=== PATIENT | male | born 1995 | race Caucasian/White ===

== ENCOUNTER 2020-09-08 23:20 | Emergency (ER) | payer BC, SELFPAY ==
[2020-09-08 23:22] VITALS: BP 131/89; PULSE 91; RESP 16; TEMP 5445.5; TEMP 9834; O2SAT 99; BMI 39.1
--- NOTE | 2020-09-08 23:50 | ECG_ITS ---
Test Reason : PALPITATION Blood Pressure : / mmHG Vent. Rate : 088 BPM Atrial Rate : 088 BPM P-R Int : 148 ms QRS Dur : 094 ms QT Int : 358 ms P-R-T Axes : 039 -07 012 degrees QTc Int : 433 ms Normal sinus rhythm with sinus arrhythmia Minimal voltage criteria for LVH, may be normal variant Borderline ECG No previous ECGs available Referred By: Meggan Santos Electronically Signed By:Eric Hernandez
--- NOTE | 2020-09-09 | ED_ITS ---
HPI - Arrhythmia/Palpitations General Chief Complaint: Arrhythmia/Palpitations Stated Complaint: Palputations Time Seen by Provider: 09/08/20 23:49 Source: patient Mode of arrival: ambulatory History of Present Illness HPI narrative: 24-year-old male without significant past medical history presents with concerns regarding palpitations that started , infrequently similar to prior, but states that today he felt like the palpitatio ns were more frequent and he became concerned as he fell he was also short of breath and decided to be evaluated in the emergency room. He endorses that he got 1st COVID-19 vaccine on Thursday. No recent history of long car rides or plane trips, hemoptysis, personal history of cancer, recent surgery or bed bound state, calf pain or calf swelling. Related Data Allergies Allergy/AdvReac Type Severity Reaction Status Date / Time amoxicillin Allergy Rash Verified 09/08/20 23:29 Penicillins [PCN] Allergy Rash Verified 09/08/20 23:29 Review of Systems Review of Systems: For pertinent positive and negative as per HPI and 10 point review of systems is otherwise negative. PMFSH Past Medical History Source: nursing notes reviewed Medical History No known health problems Social History Social History Smoked in Last 30 Days: No Advance Directives: No Advance Directives Information Provided: No Physical Exam Vital Signs: Vital Signs: Last Vital Signs Temp 9834 F H 09/08/20 23:22 Pulse 91 09/08/20 23:22 Resp 16 09/08/20 23:22 BP 131/89 09/08/20 23:22 Pulse Ox 99 09/08/20 23:22 Body Mass Index 39.1 VITAL SIGNS: Reviewed. GENERAL: Well developed, well nourished, in no acute distress. HEAD: Normocephalic/atraumatic EYES: PERRLA, EOMI EARS: Ext canals without abnormality NOSE: Nares patent bilateral OROPHARYNX: no oral lesions noted, posterior pharynx clear NECK: Supple, no adenopathy LUNGS: Normal breath sounds. No adventitious sounds or accessory muscle use. SpO2<99> CARDIOVASCULAR: Regular rate and rhythm without noted murmurs ABDOMEN: Soft, non-tender, non-distended with bowel sounds. SKIN: Inspection of the skin reveals no rashes, diaphoresis NEUROLOGIC: Alert and oriented x 4. Course Course Course Narrative: 24-year-old male with history and clinical presentation suggestive of palpitations likely secondary to anxiety/caffeine ingestion but will rule out alternate etiologies. Review of all investigations negative for any acute findings. All results and findings were discussed with the patient at bedside, and he was discharged in stable condition with recommendations to follow-up with his primary care provider. MDM - Arrhythmia/Palpitations Lab Data Result diagrams: 09/09/20 00:15 09/09/20 00:15 Labs: Lab Results 09/09/20 09/09/20 09/09/20 Range/Units 00:15 00:15 00:16 WBC 7.0 (4.8-10.8) X10*3/uL RBC 4.99 (4.60-5.80) X10*6/uL Hgb 15.2 (14.0-18.0) g/dl Hct 43.8 (42-52) % MCV 87.8 (80-98) fL MCH 30.5 (27.0-33.0) pg MCHC 34.7 (31.0-36.0) g/dl RDW 12.5 (11.0-16.0) % Plt Count 204 (160-400) X10*3/uL MPV 11.4 (9.4-12.4) fL Immature Gran % (Auto) 0.3 (0.0-0.4) % Neut % (Auto) 49.2 (45-73) % Lymph % (Auto) 36.8 (20-40) % [place] % (Auto) 11.0 (2-11) % Eos % (Auto) 2.3 (0-4) % Baso % (Auto) 0.4 (0-2) % Lymph # (Auto) 2.6 (1.2-4.9) X10*3/uL [place] # (Auto) 0.8 (0.1-1.2) X10*3/uL Eos # (Auto) 0.2 (0.0-0.4) X10*3/uL Baso # (Auto) 0.0 (0.0-0.2) X10*3/uL Abs Immat Gran (auto) 0.02 (0.00-0.03) X10*3/uL Absolute Neuts (auto) 3.5 (2.0-8.3) X10*3/uL Absolute Nucleated RBC 0.000 (0.0-0.012) X10*3/uL Nucleated RBC % (auto) 0.0 (0.0-0.2) /100WBC D-Dimer < 200 NG/ML Sodium 141 (135-145) mmol/L Potassium 3.6 (3.3-5.1) mmol/L Chloride 103 (96-108) mmol/L Carbon Dioxide 29 (22-29) mmol/L Anion Gap 13 (12-20) BUN 24 H (9-16) mg/dL Creatinine 0.99 (0.5-1.4) mg/dL Estim Creat Clear Calc 146.0 Estimated GFR > 60 Random Glucose 95 (60-115) mg/dL Calcium 9.8 (8.4-10.2) mg/dL Total Bilirubin 0.6 (0.0-1.0) mg/dL AST 43 H (5-37) U/L ALT 76 H (0-40) U/L Alkaline Phosphatase 67 (39-117) U/L Total Protein 7.0 (6.5-8.0) g/dL Albumin 4.7 (3.5-5.0) g/dL TSH (0.32-4.0) uIU/mL 09/09/20 Range/Units 00:16 WBC (4.8-10.8) X10*3/uL RBC (4.60-5.80) X10*6/uL Hgb (14.0-18.0) g/dl Hct (42-52) % MCV (80-98) fL MCH (27.0-33.0) pg MCHC (31.0-36.0) g/dl RDW (11.0-16.0) % Plt Count (160-400) X10*3/uL MPV (9.4-12.4) fL Immature Gran % (Auto) (0.0-0.4) % Neut % (Auto) (45-73) % Lymph % (Auto) (20-40) % [place] % (Auto) (2-11) % Eos % (Auto) (0-4) % Baso % (Auto) (0-2) % Lymph # (Auto) (1.2-4.9) X10*3/uL [place] # (Auto) (0.1-1.2) X10*3/uL Eos # (Auto) (0.0-0.4) X10*3/uL Baso # (Auto) (0.0-0.2) X10*3/uL Abs Immat Gran (auto) (0.00-0.03) X10*3/uL Absolute Neuts (auto) (2.0-8.3) X10*3/uL Absolute Nucleated RBC (0.0-0.012) X10*3/uL Nucleated RBC % (auto) (0.0-0.2) /100WBC D-Dimer NG/ML Sodium (135-145) mmol/L Potassium (3.3-5.1) mmol/L Chloride (96-108) mmol/L Carbon Dioxide (22-29) mmol/L Anion Gap (12-20) BUN (9-16) mg/dL Creatinine (0.5-1.4) mg/dL Estim Creat Clear Calc Estimated GFR Random Glucose (60-115) mg/dL Calcium (8.4-10.2) mg/dL Total Bilirubin (0.0-1.0) mg/dL AST (5-37) U/L ALT (0-40) U/L Alkaline Phosphatase (39-117) U/L Total Protein (6.5-8.0) g/dL Albumin (3.5-5.0) g/dL TSH 2.58 (0.32-4.0) uIU/mL ECG Data Attestation: I personally reviewed and interpreted this ECG as follows: Prior ECG tracings: not available for review Interpretation: Normal sinus rhythm, HR -88, no evidence of acute ischemia, OH/QRS/QTC are within normal limits. Discharge Plan Discharge Clinical Impression: Palpitations Patient Disposition: Home, Self-Care Instructions: Heart Palpitations (ED) Additional Instructions: Follow-up with your primary care provider in the next 2-3 days for re-evaluation and out patient management of your palpitations. Return to the emergency department for any acute worsening of symptoms. Referrals: Sierra Cruz MD [Primary Care Provider] - 2 days (Re-evaluation after seen in the ER for palpitations.)
[2020-09-09 00:21] LABS: Basophils Percent Auto 0.4 % (0-2); Eosinophils Absolute Auto 0.2 X10*3/uL (0.0-0.4); Eosinophils Percent Auto 2.3 % (0-4); Hematocrit 43.8 % (42-52); Hemoglobin 15.2 g/dl (14.0-18.0); Imm Gran Abs Auto 0.02 X10*3/uL (0.00-0.03); Imm Gran Pct Auto 0.3 % (0.0-0.4); Lymphocytes Absolute Auto 2.6 X10*3/uL (1.2-4.9); Lymphocytes Percent Auto 36.8 % (20-40); MANUAL DIFF FLAG NO; Mean Corpuscular HGB Conc 34.7 g/dl (31.0-36.0); Mean Corpuscular Hemoglobin 30.5 pg (27.0-33.0); Mean Corpuscular Volume 87.8 fL (80-98); Mean Platelet Volume 11.4 fL (9.4-12.4); Monocytes Absolute Auto 0.8 X10*3/uL (0.1-1.2); Neutrophils Absolute Auto 3.5 X10*3/uL (2.0-8.3); Neutrophils Percent Auto 49.2 % (45-73); Platelet Count 204 X10*3/uL (160-400); Red Blood Count 4.99 X10*6/uL (4.60-5.80); Red Cell Distribution Width 12.5 % (11.0-16.0)
[2020-09-09 00:39] LABS: D Dimer < 200 NG/ML
[2020-09-09 00:44] LABS: Alanine Aminotransferase 76 U/L (0-40); Albumin Level 4.7 g/dL (3.5-5.0); Alkaline Phosphatase 67 U/L (39-117); Anion Gap 13 (12-20); Aspartate Amino Transferase 43 U/L (5-37); Bilirubin Total 0.6 mg/dL (0.0-1.0); Blood Urea Nitrogen 24 mg/dL (9-16); Calcium 9.8 mg/dL (8.4-10.2); Carbon Dioxide 29 mmol/L (22-29); Chloride 103 mmol/L (96-108); Estimated Glomerular Filt Rate > 60; Glucose Random 95 mg/dL (60-115); Potassium 3.6 mmol/L (3.3-5.1); Sodium 141 mmol/L (135-145)
[2020-09-09 01:04] LABS: TSH reflex Free T4 2.58 uIU/mL (0.32-4.0)
[2020-09-09 01:14] VITALS: BP 111/71; PULSE 76; RESP 19; O2SAT 98
== END 2020-09-09 01:27 | disposition home or self-care (01) ==
PROVIDERS: Emergency Provider Student in an Organized Health Care Education/Training Program; PCP Internal Medicine
DX: R00.2 Palpitations (principal); F41.1 Generalized anxiety disorder; F43.0 Acute stress reaction
CPT/HCPCS: 36415; 80053; 84443; 85025; 85379; 93005; 99284

== ENCOUNTER → 2020-10-03 13:09 | Outpatient (REF) | payer BC, SELFPAY ==
--- NOTE | 2020-10-03 13:20 | ECG_ITS ---
Hook-up date: 2020-10-03 13:18:00 Duration: 26:30:00 Test Indications: PALPITATIONS Medications: 522265 QRS complexes 38 Ventricular ectopics which represent <1 % of total QRS comp. 1 Supraventricular ectopics which represent <1 % of total QRS comp. * Paced QRS complexs which represent % of total QRS comp. VENTRICULAR ECTOPY 38 Isolated 0 Bigeminal Cycles 0 Couplets 0 Runs 0 Beats in Runs * Beats LONGEST at * BPM at :: -- * Beats FASTEST at * BPM at :: -- SUPRAVENTRICULAR ECTOPY 1 Isolated 0 Couplets 0 Runs 0 Beats in Runs * Beats LONGEST at * BPM at :: -- * Beats FASTEST at * BPM at :: -- HEART RATES 45 MIN at 07:32:21 2020-10-04 74 AVG 140 MAX at 17:57:04 2020-10-03 LONGEST RR 1.6000 secs at 08:09:48 2020-10-04 S-T LEVELS Channel 1 - 128 mm at 13:18:00 2020-10-03 - 128 mm at 13:18:00 2020-10-03 Channel 2 - 128 mm at 13:18:00 2020-10-03 - 128 mm at 13:18:00 2020-10-03 Channel 3 - 128 mm at 03:23:71 -- - 128 mm at 03:23:71 Basic rhythm Normal sinus rhythm No long pause or profound bradycardia Rare Premature ventricular complexes 2 of the 6 reported episodes of palpitations seem to correlate with PVC, the others with NSR Referred By: Sierra Cruz Overread By: CALDERON SINGH MD
== END ==
LOC: HO.CARD 13:09
PROVIDERS: Visit Provider Internal Medicine
DX: R00.2 Palpitations (principal)
CPT/HCPCS: 93225; 93226

== ENCOUNTER 2020-10-23 10:54 | Outpatient (REF) | payer BC, SELFPAY ==
[2020-10-23 14:34] LABS: Alanine Aminotransferase 39 U/L (0-40); Albumin Level 4.8 g/dL (3.5-5.0); Alkaline Phosphatase 73 U/L (39-117); Aspartate Amino Transferase 27 U/L (5-37); Bilirubin Direct 0.3 mg/dL (0.0-0.5); Bilirubin Total 0.7 mg/dL (0.0-1.0); Total Protein 7.1 g/dL (6.5-8.0)
== END 2020-10-23 10:55 | disposition home or self-care (01) ==
LOC: HO.HMGCLDS 10:54
PROVIDERS: PCP Internal Medicine; Visit Provider Internal Medicine
DX: R79.89 Other specified abnormal findings of blood chemistry (principal)
CPT/HCPCS: 36415; 80076

== ENCOUNTER → 2020-12-24 14:45 | Outpatient (REF) | payer BC, SELFPAY ==
--- NOTE | 2020-12-24 14:48 | CA_ITS ---
Transthoracic Echocardiogram Patient (Last, First, Middle): Vladislav Vizcarra M Gender: Male Date of : 1995 Age: 25 Procedure Date: 12/24/2020 Procedure Type: Transthoracic Echocardiogram Location: OP Height: 175.26 cm Weight: 103.42 kg BSA: 2.18 m2 Heart Rate: bpm BP: 120 / 62 mmHg Steep Tender: STEPHEN Referring MD: Sierra Cruz MD Symptoms: R00.2 - Palpitations Study Quality: Good ECG Rhythm: Sinus Conclusions: - The left ventricular systolic function is normal. The calculated ejection fraction is 66% by biplane method. - No obvious valvular pathology seen on this study. Findings Left Ventricle Normal left ventricular cavity size. There is normal left ventricular wall thickness. The left ventricular systolic function is normal. The calculated ejection fraction is 66% by biplane method. There is no evidence of regional wall motion abnormalities. Diastolic function is normal for age. Right Ventricle Normal right ventricular cavity size and systolic function. Atria Both atria are normal in size. Aortic Valve There is a normal trileaflet aortic valve. There is no aortic valve stenosis. There is no aortic valve regurgitation. Mitral Valve The mitral valve appears normal. There is no mitral valve regurgitation. There is no mitral valve stenosis. Pulmonic Valve The pulmonic valve was not well visualized. There is trace pulmonic valve regurgitation. Tricuspid Valve Normal tricuspid valve structure. There is trace tricuspid valve regurgitation. The pulmonary artery systolic pressure is normal. Great Vessels The aortic annulus, sinuses of valsalva, and asc aorta are normal in size. Venous The inferior vena cava is normal in size and collapses greater than 50% with inspiration. Pericardium/Pleural There is no evidence of pericardial effusion. Prior Study Comparison No prior study available for comparison. Recommendations, Care & Conclusions No obvious valvular pathology seen on this study. Measurements 2D Linear Measurements IVSd: 0.92 0.6-0.9/0.6-1.0 cm LVIDd: 5.64 3.9-5.3/4.2-5.9 cm LVIDd Index: 2.59 2.4-3.2/2.2-3.1 cm/m2 LVIDs: 3.43 2.0-3.6 cm LVPWd: 0.80 0.7-1.1 cm Ao Root: 3.30 2.1-3.5 cm LA Diam: 4.10 2.7-3.8/3.0-4.0 cm LAIDs Index: 1.88 1.5-2.3 cm/m2 LV Mass: 228.73 67-162/88-224 g LV Mass Index: 104.92 43-95/49-115 g/m2 LVOT Diam: 2.10 3.0+(-)1.3 cm 2D Systolic Function EF 4C: 59.80 >55% EF 2C: 72.20 >55% EF BiP: 66.00 >55% Mitral Valve MV Pk E: 1.15 MV PK A: 0.63 MV Decel Time: 165.00 E/A: 1.80 E'Lateral: 18.90 E'Medial: 12.40 E/E' Med: 9.30 E/E' Lat: 6.10 PHT: 48.00 MVA PHT: 4.58 Decel Rankin: 6.99 Aortic Valve AoV Pk Hamzah: 1.59 AoV Mn Hamzah: 1.15 AoV VTI: 0.36 AoV Pk Grad: 10.00 Aov Mn Grad: 6.00 YESICA Cont.VTI: 2.31 LVOT LVOT Pk Hamzah: 1.22 LVOT Mn Hamzah: 0.81 LVOT VTI: 0.24 LVOT Pk Grad: 6.00 LVOT Mn Grad: 3.00 LVOT Diam: 2.10 LVOT Area: 3.46 Diastolic Function MV Pk E: 1.15 MV Pk A: 0.63 E/A: 1.80 E'Medial: 12.40 E/E' Med: 9.30 E' Laterial: 18.90 E/E' Lat: 6.10 Right Ventricle TAPSE (mm): 2.40 TVS' Hamzah: 15.00 Tricuspid Valve TR Pk Hamzah: 2.52 TR Pk Grad: 25.00 RA Press: 3.00 RVSP: 28.00 Great Vessels Aorta Ao Root-2D: 3.30 2.0-3.7 cm Ao Asc: 3.20 2.1-3.4 cm Ao Arch: 2.90 Updated in Other Vendor System with Status of Final Osmar Mcelroy MD electronically signed on 12/24/2020 4:09:04 PM with status of Final
== END ==
LOC: HO.CARD 14:45
PROVIDERS: Visit Provider Internal Medicine
DX: R00.2 Palpitations (principal); I49.3 Ventricular premature depolarization
CPT/HCPCS: 93306

== ENCOUNTER 2021-12-02 18:29 | Outpatient (REF) | payer OTHER, SELFPAY | END 2021-12-02 18:30 | disposition home or self-care (01) | LOC: HO.LNP 18:29 | PROVIDERS: Visit Provider Internal Medicine | DX: B35.1 Tinea unguium (principal) | CPT/HCPCS: 87101 ==